=== PATIENT | female | born 1955 | race Caucasian/White ===

== ENCOUNTER 2021-01-24 08:56 | Outpatient (CLI) | payer MEDICARE, BC | END 2021-01-24 08:57 | disposition home or self-care (01) | LOC: CSHULT 08:56 | PROVIDERS: ATTEND Family Medicine | DX: R53.82 Chronic fatigue, unspecified (principal); I51.9 Heart disease, unspecified | CPT/HCPCS: 93306 ==

== ENCOUNTER 2023-07-08 07:00 | Emergency (ER) | payer MEDICARE, BC ==
[2023-07-08] MEDS ORDERED: Ketorolac Tromethamine 30 MG/ML VIAL ONE (07:22)
[2023-07-08] MEDS ORDERED: predniSONE 20 MG TAB ONE (07:22)
== END 2023-07-08 08:15 | disposition home or self-care (01) ==
LOC: CSHERS 07:00
DX: S39.012A Strain of muscle, fascia and tendon of lower back, initial encounter (principal); I10 Essential (primary) hypertension; K21.9 Gastro-esophageal reflux disease without esophagitis; J45.909 Unspecified asthma, uncomplicated; F17.210 Nicotine dependence, cigarettes, uncomplicated; X58.XXXA Exposure to other specified factors, initial encounter
CPT/HCPCS: 72100; 96374; J1885; J7512

== ENCOUNTER 2024-10-25 06:34 | Inpatient (IN) | payer MEDICARE, BC ==
[2024-10-25] MEDS ORDERED: Ipratropium/Albuterol 3 ML NEB ONE ×2 (06:49→08:27)
[2024-10-25] MEDS ORDERED: Ketorolac Tromethamine 30 MG (1 mL) VIAL ONE (06:54)
[2024-10-25] MEDS ORDERED: methylPREDNISolone Sod Succ/PF 125 MG/2 ML VIAL ONE (06:54)
[2024-10-25 07:10] LABS: Actual Bicarbonate (HCO3v) 22.7 mEq/L (22-28); Analyzer IN Cardio CS ER; Base Excess 0.9 mEq/L (-2 - +2); Calcium, Ionized (venous) 1.06 mmol/L (1.16-1.32); Chloride (VBG) 101 mmol/L (98-106); Hematocrit-VBG 38 % (36.0-47.0); Hemoglobin (Hb) 12.8 g/dL (11.7-16.1); Potassium (VBG) 3.48 mmol/L (3.70-5.30); Puncture Site Other Site; RapidComm Collect By LAB; Sodium 136 mmol/L (133-146); pH (venous) 7.523 (7.32-7.43)
[2024-10-25 07:40] LABS: #Basophils Less than 0.03 10x3/uL (0.0-0.2); #Eosinophils Less than 0.03 10x3/uL (0.0-0.5); #Monocytes 0.77 10x3/uL (0.0-1.1); #Neutrophils 2.92 10x3/uL (1.5-8.4); %Basophils 0.2 % (0.0-2.0); %Eosinophils 0.5 % (0.0-6.0); %Monocytes 17.5 % (0.0-10.0); %Neutrophils 66.3 % (40.0-75.0); Hematocrit 34.6 % (34.9-44.5); Hemoglobin 11.9 g/dL (12.0-15.5); Mean Corpuscular HGB CONC 34.4 g/dL (32.0-36.0); Mean Corpuscular Hemoglobin 31.9 pg (27.0-33.0); Mean Corpuscular Volume 92.8 fL (81.6-98.3); Platelet Count 156 10x3/uL (150-450); RBC Distribution Width 13.1 % (11.5-14.5); Red Blood Cell (RBC) Count 3.73 10x6/uL (3.90-5.03)
[2024-10-25 07:54] LABS: ALT (SGPT) 69 U/L (Less than 34); AST (SGOT) 69 U/L (11-34); Albumin 3.7 g/dL (3.1-4.5); Alkaline Phosphatase 78 U/L (40-110); Anion Gap 17 mmol/L (10-20); BUN (Urea Nitrogen) 7 mg/dL (9.8-20.1); Bilirubin, Total 0.6 mg/dL (0.3-1.2); Calc. Creatinine Clearance 0 mL/min (70-130); Calcium 8.8 mg/dL (7.8-10.44); Carbon Dioxide 18 mmol/L (23-31); Chloride 104 mmol/L (98-107); Estimated GFR 95; Globulin 2.7 g/dL (2.4-3.5); Glucose 127 mg/dL (80-115); Lipase 16 U/L (8-78); Magnesium 1.6 mg/dL (1.6-2.6); Potassium 3.5 mmol/L (3.5-5.1); Protein, Total 6.4 g/dL (5.8-8.1); Sodium 135 mmol/L (136-145)
[2024-10-25 07:58] LABS: Troponin I Less than 0.010 ng/mL (< 0.028)
[2024-10-25 09:14] LABS: Bilirubin Neg (Negative); Blood, Urine 25 (Negative); Clarity Clear (Clear); Glucose, Urine (Dipstick) Normal (Negative); Ketone, Urine Negative (Negative); Leukocyte 25 (Negative); Nitrite Negative (Negative); Protein, Urine (Dipstick) Negative (Neg-Trace); Specific Gravity, Urine 1.005 (1.005-1.030); Urobilinogen Normal mg/dL (Less than 2); pH, Urine 6.5 (5.0-9.0)
[2024-10-25 09:41] LABS: Bacteria/HPF 1+ HPF (None Seen); CAUTI Indications for Culture Pelvic or flank pain; RBC/HPF 0-3 HPF (0-3); Squamous Epithelial 0-3 HPF (0-3); Urine Culture Reflex No No; WBC/HPF 0-3 HPF (0-3)
[2024-10-25] MEDS ORDERED: Ipratropium/Albuterol 3 ML NEB NEB PRN (11:13)
[2024-10-25] MEDS: Doxycycline 100 MG CAP PO SCH ×2 (12:27→21:13)
[2024-10-25] MEDS: Oseltamivir 75 MG CAP PO SCH ×2 (12:27→21:13)
[2024-10-25 12:39] VITALS: BMI 28.6
[2024-10-25] MEDS: Lorazepam 0.5 MG TAB PO PRN (13:36)
[2024-10-25] MEDS: Aripiprazole 2 MG TAB PO SCH (13:36)
[2024-10-25] MEDS: Escitalopram Oxalate 20 mg Tablet PO SCH (13:36)
[2024-10-25] MEDS: Ipratropium/Albuterol 3 ML NEB NEB SCH (16:45)
[2024-10-25] MEDS: traZODone HCl 50 MG TAB PO SCH (21:12)
[2024-10-25] MEDS: Acetaminophen 325 MG TAB PO PRN (21:13)
[2024-10-25] MEDS: Ondansetron ODT 4 MG TAB PO PRN (21:31)
[2024-10-26 04:19] LABS: Hematocrit 34.9 % (34.9-44.5); Hemoglobin 12.1 g/dL (12.0-15.5); Mean Corpuscular HGB CONC 34.7 g/dL (32.0-36.0); Mean Corpuscular Hemoglobin 32.4 pg (27.0-33.0); Mean Corpuscular Volume 93.3 fL (81.6-98.3); Mean Platelet Volume 9.7 fL (7.4-10.4); Platelet Count 174 10x3/uL (150-450); Red Blood Cell (RBC) Count 3.74 10x6/uL (3.90-5.03); White Blood Cell (WBC) Count 3.03 10x3/uL (3.5-10.5)
[2024-10-26 04:28] LABS: Anion Gap 14 mmol/L (10-20); BUN (Urea Nitrogen) 10 mg/dL (9.8-20.1); Calc. Creatinine Clearance 102 mL/min (70-130); Calcium 9.2 mg/dL (7.8-10.44); Carbon Dioxide 23 mmol/L (23-31); Chloride 107 mmol/L (98-107); Estimated GFR 97; Glucose 133 mg/dL (80-115); Potassium 3.8 mmol/L (3.5-5.1); Sodium 140 mmol/L (136-145)
[2024-10-26 06:10] LABS: Band 12 % (5-11); Lymphocytes 22 % (21-51); MDiff Complete? YES; Monocytes 15 % (0-10); Neutrophil 51 % (42-75); Platelet Adequacy Comment Appears Adequate; RBC Morphology Within Normal Limits
[2024-10-26] MEDS: Montelukast Sodium 10 mg Tablet PO SCH (08:24)
[2024-10-26] MEDS: Aripiprazole 2 MG TAB PO SCH (08:24)
[2024-10-26] MEDS: Pantoprazole 40 MG DR.TAB PO SCH (08:24)
[2024-10-26] MEDS: Enoxaparin 40 MG (0.4 mL) SYRINGE SC SCH (08:24)
[2024-10-26] MEDS: Escitalopram Oxalate 20 mg Tablet PO SCH (08:24)
[2024-10-26] MEDS: predniSONE 20 MG TAB PO SCH (08:24)
[2024-10-26] MEDS: Benzonatate 100 MG CAP PO SCH (14:07)
[2024-10-27 04:19] LABS: #Basophils Less than 0.03 10x3/uL (0.0-0.2); #Eosinophils Less than 0.03 10x3/uL (0.0-0.5); #Monocytes 0.76 10x3/uL (0.0-1.1); #Neutrophils 2.97 10x3/uL (1.5-8.4); %Lymphocytes 24.8 % (18.0-47.0); %Monocytes 15.2 % (0.0-10.0); %Neutrophils 59.6 % (40.0-75.0); Hematocrit 34.2 % (34.9-44.5); Hemoglobin 11.7 g/dL (12.0-15.5); Mean Corpuscular HGB CONC 34.2 g/dL (32.0-36.0); Mean Corpuscular Hemoglobin 32.3 pg (27.0-33.0); Mean Corpuscular Volume 94.5 fL (81.6-98.3); Mean Platelet Volume 9.9 fL (7.4-10.4); Platelet Count 187 10x3/uL (150-450); RBC Distribution Width 13.2 % (11.5-14.5); Red Blood Cell (RBC) Count 3.62 10x6/uL (3.90-5.03); White Blood Cell (WBC) Count 4.99 10x3/uL (3.5-10.5)
[2024-10-27 04:29] LABS: Anion Gap 11 mmol/L (10-20); BUN (Urea Nitrogen) 13 mg/dL (9.8-20.1); Calc. Creatinine Clearance 96 mL/min (70-130); Carbon Dioxide 25 mmol/L (23-31); Chloride 107 mmol/L (98-107); Estimated GFR 95; Glucose 122 mg/dL (80-115); Potassium 3.4 mmol/L (3.5-5.1); Sodium 140 mmol/L (136-145)
[2024-10-27] MEDS: guaiFENesin/DM ER PO SCH ×2 (10:52→21:07)
[2024-10-28] MEDS ORDERED: Electrolyte Replacement Protocol FS PRN (07:45)
[2024-10-28] MEDS: Potassium Chloride 20 MEQ TAB PO SCH (08:50)
[2024-10-28 08:53] VITALS: BP 140/69; TEMP 98.1
[2024-10-28] MEDS ORDERED: Magnesium 2 GM/50 ML(in water) 2 GM in Premix 1 BAG IVPB SCH ×2 (09:00→12:00)
[2024-10-28 10:00] LABS: Magnesium 1.8 mg/dL (1.6-2.6)
== END 2024-10-28 11:15 | disposition home or self-care (01) | DRG 193 ==
LOC: CSHERS 06:34 → SUATTDRO 06:34 → CSHTELE 11:07 → OBSVTOIN 10-26 08:11
PROVIDERS: ADMIT Family Medicine; ATTEND Internal Medicine
DX: J10.1 Influenza due to other identified influenza virus with other respiratory manifestations (principal); J96.01 Acute respiratory failure with hypoxia; J44.1 Chronic obstructive pulmonary disease with (acute) exacerbation; I10 Essential (primary) hypertension; K21.9 Gastro-esophageal reflux disease without esophagitis; Z98.890 Other specified postprocedural states; Z90.49 Acquired absence of other specified parts of digestive tract; Z98.51 Tubal ligation status; F41.9 Anxiety disorder, unspecified; F31.9 Bipolar disorder, unspecified; F17.210 Nicotine dependence, cigarettes, uncomplicated; Z79.899 Other long term (current) drug therapy
CPT/HCPCS: 36415; 71045; 80048; 80053; 81001; 82805; 83690; 83735; 84484; 85025; 87428; 93005; 94640; 94667; 94668; 94760; 94762; 96374; 96375; G0378; J1650; J1885; J2919; J7512; J7620; Q0162

== ENCOUNTER 2025-07-07 08:41 | Inpatient (IN) | payer MEDICARE, BC ==
[2025-07-07] MEDS ORDERED: Famotidine 20 MG TAB ONE (09:05)
[2025-07-07] MEDS ORDERED: Acetaminophen 500 MG TAB ONE (09:06)
[2025-07-07] MEDS ORDERED: Albuterol 2.5 MG (3 mL) NEB ONE ×2 (09:12→16:24)
[2025-07-07 09:24] LABS: #Basophils Less than 0.03 10x3/uL (0.0-0.2); #Eosinophils 0.14 10x3/uL (0.0-0.5); #Monocytes 0.42 10x3/uL (0.0-1.1); #Neutrophils 6.29 10x3/uL (1.5-8.4); %Basophils 0.1 % (0.0-2.0); %Eosinophils 1.9 % (0.0-6.0); %Lymphocytes 6.0 % (18.0-47.0); %Monocytes 5.7 % (0.0-10.0); %Neutrophils 85.9 % (40.0-75.0); Hematocrit 41.8 % (34.9-44.5); Hemoglobin 14.0 g/dL (12.0-15.5); Mean Corpuscular Hemoglobin 32.0 pg (27.0-33.0); Mean Corpuscular Volume 95.7 fL (81.6-98.3); Platelet Count 190 10x3/uL (150-450); Red Blood Cell (RBC) Count 4.37 10x6/uL (3.90-5.03); White Blood Cell (WBC) Count 7.33 10x3/uL (3.5-10.5)
[2025-07-07 09:42] LABS: ALT (SGPT) 24 U/L (Less than 34); AST (SGOT) 28 U/L (11-34); Albumin 4.2 g/dL (3.1-4.5); Alkaline Phosphatase 86 U/L (40-110); Anion Gap 13 mmol/L (10-20); BUN (Urea Nitrogen) 18 mg/dL (9.8-20.1); Bilirubin, Total 0.7 mg/dL (0.3-1.2); Calc. Creatinine Clearance 0 mL/min (70-130); Calcium 9.1 mg/dL (7.8-10.44); Carbon Dioxide 24 mmol/L (23-31); Chloride 108 mmol/L (98-107); Globulin 3.1 g/dL (2.4-3.5); Glucose 122 mg/dL (80-115); Potassium 4.1 mmol/L (3.5-5.1); Sodium 141 mmol/L (136-145)
[2025-07-07 09:46] LABS: Troponin I Less than 0.010 ng/mL (< 0.028)
[2025-07-07] MEDS ORDERED: Cefepime 2 GM VIAL ONE (10:40)
[2025-07-07] MEDS ORDERED: Guaifenesin DM 100-10/5 ML UDCUP PO PRN (15:46)
[2025-07-07] MEDS ORDERED: Ondansetron PF 4 MG/2 ML Vial IVP PRN (15:46)
[2025-07-07] MEDS ORDERED: Electrolyte Replacement Protocol 1 EACH FS SCH (16:00)
[2025-07-07] MEDS ORDERED: Azithromycin 500 MG VIAL ONE (16:04)
[2025-07-07 16:06] LABS: Actual Bicarbonate (HCO3a) 18.2 mEq/L (22-28); Analyzer IN Cardio CS ICU; Base Excess (BEa) -6.1 mEq/L (-2.0 to +3.0); CO2 Tension 32.5 mmHg (35.0-45.0); Calcium, Ionized (arterial) 1.14 mmol/L (1.12-1.30); Hematocrit-ABG 43 % (36.0-47.0); Hemoglobin (Hb) 14.5 g/dL (12.0-16.0); O2 Tension (PaO2), arterial 69.7 mmHg (> 80.0); Potassium - ABG Lab 3.84 mmol/L (3.70-5.30); Puncture Site Right Radial artery; pH, Arterial 7.365 (7.35-7.45)
[2025-07-07 16:08] LABS: ALV-art Gradient 39.405 mmHg (0-20)
[2025-07-07 16:49] LABS: Glucose, Urine (Dipstick) 50 mg/dL (Negative); Leukocyte Negative (Negative); Protein, Urine (Dipstick) Negative (Neg-Trace); Specific Gravity, Urine 1.015 (1.005-1.030)
[2025-07-07 17:44] LABS: Bacteria/HPF None Seen HPF (None Seen); CAUTI Indications for Culture Fever or rigors; RBC/HPF 0-3 HPF (0-3); Urine Culture Reflex No No; WBC/HPF 0-3 HPF (0-3)
[2025-07-07] MEDS ORDERED: Electrolyte Replacement Protocol 1 EACH FS PRN (18:27)
[2025-07-07 19:16] VITALS: BMI 31.1
[2025-07-07] MEDS: LevoFLOXacin 750 mg/D5W 750 MG in Premix 1 BAG IVPB SCH (19:25)
[2025-07-07] MEDS: Acetaminophen 325 MG TAB PO PRN (19:33)
[2025-07-07] MEDS: Mometasone 200 MCG/Formoterol 5 MCG 60 PUFF INHALER INH SCH (20:00)
[2025-07-07] MEDS: Famotidine 20 MG TAB PO SCH (20:14)
[2025-07-08] MEDS: Enoxaparin 40 MG (0.4 mL) SYRINGE SC SCH (08:28)
[2025-07-08] MEDS ORDERED: Ketorolac Tromethamine 30 MG (1 mL) VIAL IVP PRN (11:12)
[2025-07-08] MEDS: Ketorolac Tromethamine 30 MG (1 mL) VIAL IVP SCH (11:32)
[2025-07-08] MEDS ORDERED: HYDROcodone/Acetaminophen 10/325 mg Tablet PO PRN (13:48)
[2025-07-08] MEDS: Cyclobenzaprine 10 MG TAB PO SCH (21:18)
[2025-07-08] MEDS: Gabapentin 300 MG CAP PO SCH (21:18)
[2025-07-09 02:29] LABS: Campy jejuni + coli by PCR Negative (Negative); STEC Shiga Toxin 1+2 Negative (Negative); Salmonella spp. by PCR Negative (Negative); Shigella spp + EIEC by PCR Negative (Negative)
[2025-07-09 04:53] LABS: #Basophils Less than 0.03 10x3/uL (0.0-0.2); #Eosinophils Less than 0.03 10x3/uL (0.0-0.5); #Monocytes 0.57 10x3/uL (0.0-1.1); #Neutrophils 3.47 10x3/uL (1.5-8.4); %Basophils 0.0 % (0.0-2.0); %Eosinophils 0.0 % (0.0-6.0); %Lymphocytes 17.4 % (18.0-47.0); %Monocytes 11.6 % (0.0-10.0); %Neutrophils 70.4 % (40.0-75.0); Hematocrit 32.3 % (34.9-44.5); Hemoglobin 10.8 g/dL (12.0-15.5); Mean Corpuscular Hemoglobin 32.0 pg (27.0-33.0); Mean Corpuscular Volume 95.8 fL (81.6-98.3); Platelet Count 178 10x3/uL (150-450); Red Blood Cell (RBC) Count 3.37 10x6/uL (3.90-5.03); White Blood Cell (WBC) Count 4.93 10x3/uL (3.5-10.5)
[2025-07-09 05:08] LABS: Anion Gap 11 mmol/L (10-20); BUN (Urea Nitrogen) 17 mg/dL (9.8-20.1); Calc. Creatinine Clearance 108 mL/min (70-130); Calcium 8.8 mg/dL (7.8-10.44); Carbon Dioxide 25 mmol/L (23-31); Chloride 110 mmol/L (98-107); Glucose 137 mg/dL (80-115); Magnesium 2.0 mg/dL (1.6-2.6); Potassium 4.0 mmol/L (3.5-5.1); Sodium 142 mmol/L (136-145)
[2025-07-09 08:28] VITALS: TEMP 98.6
[2025-07-09] MEDS: Magnesium 2 GM/50 ML(in water) 2 GM in Premix 1 BAG IVPB SCH (08:32)
[2025-07-09] MEDS: Pantoprazole 40 MG DR.TAB PO SCH (08:32)
[2025-07-09] MEDS: Fioricet 325/50/40 mg Tablet PO PRN (11:51)
[2025-07-09 11:52] VITALS: BP 150/82
== END 2025-07-09 13:10 | disposition home or self-care (01) | DRG 872 ==
LOC: CSHERS 08:41 → CSHTELE 16:42 → OBSVTOIN 07-08 13:41
PROVIDERS: ADMIT Family Medicine; ATTEND Family Medicine
PROC: 4A033R1 Measurement of Arterial Saturation, Peripheral, Percutaneous Approach (ICD-10-PCS; principal; 2025-07-08)
DX: A41.9 Sepsis, unspecified organism (principal); E87.20 Acidosis, unspecified; A08.39 Other viral enteritis; J45.901 Unspecified asthma with (acute) exacerbation; I10 Essential (primary) hypertension; R42 Dizziness and giddiness; J30.9 Allergic rhinitis, unspecified; K21.9 Gastro-esophageal reflux disease without esophagitis; M54.9 Dorsalgia, unspecified; F41.9 Anxiety disorder, unspecified; F31.9 Bipolar disorder, unspecified; F10.10 Alcohol abuse, uncomplicated; E86.0 Dehydration; F17.210 Nicotine dependence, cigarettes, uncomplicated; Z98.890 Other specified postprocedural states; Z90.49 Acquired absence of other specified parts of digestive tract; Z98.1 Arthrodesis status; Z79.899 Other long term (current) drug therapy; Z79.51 Long term (current) use of inhaled steroids; Z96.82 Presence of neurostimulator; Z98.51 Tubal ligation status
CPT/HCPCS: 36415; 36600; 71250; 74176; 80048; 80053; 81001; 82805; 83605; 83735; 83880; 84484; 85025; 87040; 87428; 87505; 87798; 93005; 93010; 94640; 94664; 96372; 96374; 96375; 96376; G0378; J0456; J0692; J1650; J1885; J1956; J2919; J3475; J7120; J7611